=== PATIENT | female | born 1995 | race African-American/Black ===

== ENCOUNTER 2019-10-21 09:25 | Emergency (ER) | payer BC ==
[2019-10-21 09:44] VITALS: BMI 31.4
[2019-10-21 10:43] VITALS: BP 127/78; PULSE 103; TEMP 98.2
== END 2019-10-21 10:45 | disposition home or self-care (01) ==
LOC: JER 09:25
DX: Z34.92 Encounter for supervision of normal pregnancy, unspecified, second trimester (principal); Z3A.25 25 weeks gestation of pregnancy
CPT/HCPCS: 99281-25